=== PATIENT | female | born 1970 | race Caucasian/White ===

== ENCOUNTER 2021-11-21 11:15 | Inpatient (IN) | payer OTHER ==
[~2021-11-21] VITALS: Ht 157.5 cm; Wt 102.1 kg
[2021-11-29 11:54] LABS: BASOPHILS # (AUTO) 0.1 X10'3 (0-0.2); BASOPHILS % (AUTO) 0.7 % (0-1); EOSINOPHILS # (AUTO) 0.1 X10'3 (0-0.9); EOSINOPHILS % (AUTO) 1.2 % (0-6); LYMPHOCYTES # (AUTO) 2.2 X10'3 (1.1-4.8); LYMPHOCYTES % (AUTO) 30.9 % (21-51); MEAN CORPUSCULAR HEMOGLOBIN 30.9 PG (27.0-31.0); MEAN CORPUSCULAR HGB CONC 34.3 g/dL (33.0-36.5); MEAN PLATELET VOLUME 7.8 FL (7.4-10.4); MONOCYTES # (AUTO) 0.6 X10'3 (0-0.9); MONOCYTES % (AUTO) 8.3 % (2-12); NEUTROPHILS # (AUTO) 4.2 X10'3 (1.8-7.7); NEUTROPHILS % (AUTO) 58.9 % (42-75); PRE OP HEMOGLOBIN 14.1 g/dL (12.0-16.0); PRE OP PLATELET COUNT 294 X10'3 (140-440); RED BLOOD COUNT 4.56 X10'6 (4.20-5.60)
[2021-11-29 12:05] LABS: ALBUMIN/GLOBULIN RATIO 1.3 (1.1-1.5); ALKALINE PHOSPHATASE 89 IU/L (46-116); BLOOD UREA NITROGEN 13 MG/DL (7-18); BUN/CREATININE RATIO 22.8 (6.6-38.0); CALCIUM 9.4 MG/DL (8.5-10.1); CHLORIDE 105 MMOL/L (99-107); CREATININE 0.57 MG/DL (0.40-0.90); PRE OP ALT 31 U/L (30-65); PRE OP ANION GAP 9 (8-16); PRE OP AST 19 U/L (10-37); PRE OP BILIRUB, TOTAL 0.2 MG/DL (0.0-1.0); PRE OP GLUCOSE 98 MG/DL (70-104); PRE OP POTASSIUM 4.2 MMOL/L (3.4-5.1); PRE OP SODIUM 141 MMOL/L (135-145); TOTAL CARBON DIOXIDE 26.7 MMOL/L (24-32); TOTAL PROTEIN 7.2 G/DL (6.4-8.2); eGFR > 90 ML/MIN
[2021-11-29] MEDS ORDERED: PROM25TA14 PO (17:29)
[2021-11-29] MEDS ORDERED: CYCL-394 PO (17:29)
[2021-11-29] MEDS ORDERED: ACET-812 PO (17:29)
[2021-11-29] MEDS ORDERED: HYDR-3972 PO (17:29)
[2021-11-29] MEDS ORDERED: IBUP-1984 PO (17:29)
[2021-12-06] VITALS (19 sets, daily range): BP systolic 95–174; BP diastolic 48–96
[2021-12-06] MEDS ORDERED: ringers solution, lacted 1,000 ML IV SCH ×2 (05:00→08:05)
[2021-12-06] MEDS ORDERED: famotidine 20mg tablet PO ONE (05:30)
[2021-12-06] MEDS ORDERED: albuterol 2.5 MG/3 ML nebule NEB ONE (05:30)
[2021-12-06] MEDS ORDERED: vancomycin/NS 1 GM in NS 250 ML IV ONE (05:30)
[2021-12-06] MEDS ORDERED: cefazolin/dext.iso 2gm/50ml IV ONE ×2 (05:30→06:15)
[2021-12-06] MEDS ORDERED: tranexamic acid 650mg tablet PO ONE (05:30)
[2021-12-06] MEDS ORDERED: albuterol 2.5 MG/3 ML nebule NEB STA (05:59)
--- NOTE | 2021-12-06 06:13 | NUR ---
ANCEF ORDERED, THIS PATIENT IS ALLERGIC TO PCN'S. CALLED [facility]. THEY WOULD LIKE TO GIVE KEFLEX. DISCUSSED ADMIN OF KEFLEX WITH PATIENT. PATIENT STATES, " OH YA I CAN TAKE KEFLEX WITH NO PROBLEMS".
[2021-12-06] MEDS ORDERED: LIDOcaine 1% (10mg/ml) 2ml vial ONE (06:26)
[2021-12-06] MEDS ORDERED: ROPIVAcaine 0.5% (5mg/ml) 30ml vial ONE ×2 (06:59→07:58)
[2021-12-06] MEDS ORDERED: ketorolac trometh. 30mg/ml inj. ONE (06:59)
[2021-12-06] MEDS ORDERED: FENTANYL CITRATE/PF 50 MCG/1 ML VIAL ONE ×2 (07:15→07:47)
[2021-12-06] MEDS ORDERED: MIDAZolam 1 MG/ML 5ML VIAL ONE (07:16)
[2021-12-06] MEDS ORDERED: sevoflurane 250ml liquid IH ONE (07:24)
[2021-12-06] MEDS ORDERED: LIDOcaine 1%/PF 5ML 10 MG/ML VIAL ONE ×2 (07:58→09:10)
[2021-12-06] MEDS ORDERED: HYDROmorphone/PF 0.2 MG/ML SYRINGE IV PRN ×2 (08:05)
[2021-12-06] MEDS ORDERED: ROPIVAcaine 0.2% (10 MG/5 ML) BOLUS INJECTION INTERSCALE PRN (08:05)
[2021-12-06] MEDS ORDERED: meperidine/PF 25mg/ml syringe IV PRN ×3 (08:05)
[2021-12-06] MEDS ORDERED: ondansetron/PF 4mg/2ml inj IV PRN ×2 (08:05→10:05)
[2021-12-06] MEDS ORDERED: ROPIVAcaine 0.2%/PF PUMP/bolus 545 ML INTERSCALE SCH (08:05)
[2021-12-06] MEDS ORDERED: dexamethasone sod phosphate 4mg/ml inj. ONE (09:10)
[2021-12-06] MEDS ORDERED: ondansetron/PF 4mg/2ml inj ONE (09:10)
[2021-12-06] MEDS ORDERED: propofol inj 20 ML IV ONE (09:10)
[2021-12-06] MEDS ORDERED: acetaminophen 1,000mg/100ml IV 100 ML IV ONE (09:10)
[2021-12-06] MEDS ORDERED: meperidine/PF 25mg/ml syringe ONE (09:11)
--- NOTE | 2021-12-06 09:21 | NUR ---
Received from OR via , accompanied by Anesthesiologist DR VALLADARES and report given by Anesthesiolgist. AWAKENS TO VOICE. VITALS STABLE. DRESSING DI. RONAN PAIN. RUE IN A SIMPLE SLING. FINGERS WARM AND PINK.
[2021-12-06] MEDS ORDERED: magnesium hydroxide 30ml (MOM) UD suspension PO PRN (10:05)
[2021-12-06] MEDS ORDERED: HYDROmorphone inj. 0.5 MG/0.5 ML DISP.SYRIN IV PRN (10:05)
[2021-12-06] MEDS ORDERED: diphenhydrAMINE 25mg capsule PO PRN ×2 (10:05)
[2021-12-06] MEDS ORDERED: bisacodyl 10mg suppository rectal RC PRN (10:05)
[2021-12-06] MEDS ORDERED: oxyCODONE IR 5mg (immed. release) tablet PO PRN (10:05)
[2021-12-06] MEDS ORDERED: non-formulary drug (Acetaminophen (Tylenol Extra Strength) 2 TABLET) PO PRN (10:05)
[2021-12-06] MEDS ORDERED: naloxone 0.4 mg/ml inj IV PRN (10:05)
[2021-12-06] MEDS ORDERED: proMETHazine 25mg tablet PO PRN (10:05)
[2021-12-06] MEDS ORDERED: HYDROmorphone 1 mg/ml syringe IV PRN (10:05)
[2021-12-06] MEDS ORDERED: acetaminophen 325mg tablet PO PRN (10:05)
[2021-12-06] MEDS ORDERED: ibuprofen tablet 400 MG TABLET PO PRN (10:05)
--- NOTE | 2021-12-06 10:21 | NUR ---
Report called to receiving nurse. Transferred via BED Belongings . Special Issues communicated to receiving nurse.AWAKE AND ORIENTED. VITALS STABLE. DRESSING DI. STATES PAIN IMPROVING. TO ORTHO RM 4024B AT THIS TIME.
--- NOTE | 2021-12-06 10:30 | NUR ---
Received patient from recovery, set up VS, assessed patient. Noted pupils to be unequal in size, did a neuro assessment everything was negative. Stopped the ropivacaine pumped, spoke with pharmacy and anesthesia, anesthesia stated to run it slow no need to pull the catheter out.
[2021-12-06] MEDS: ceFAZolin/D5W- 1GM premix 50 ML IV SCH (14:39)
[2021-12-06] MEDS: cyclobenzaprine 10mg tablet PO SCH (14:39)
[2021-12-06] MEDS: acetaminophen 325mg tablet PO SCH ×2 (14:40→20:56)
[2021-12-06] MEDS: potassium cl 20mEq in 1/2 NS 1,000 ML IV SCH ×2 (14:40→18:05)
--- NOTE | 2021-12-06 17:05 | NUR ---
Dr. Daniels and Dr. Carranza in to see patient.
[2021-12-06] MEDS ORDERED: vancomycin/NS 1 GM ADD-VANTAGE 250 ML IV SCH (20:00)
[2021-12-06] MEDS ORDERED: sennosides 8.6mg tablet PO SCH (21:00)
[2021-12-06] MEDS: oxyCODONE IR 5mg (immed. release) tablet PO PRN (23:02)
[2021-12-07] MEDS: ceFAZolin/D5W- 1GM premix 50 ML IV SCH ×2 (00:11→00:15)
[2021-12-07] MEDS: cyclobenzaprine 10mg tablet PO SCH ×3 (00:11→10:05)
[2021-12-07 02:00] VITALS: BP 133/67
[2021-12-07] MEDS: potassium cl 20mEq in 1/2 NS 1,000 ML IV SCH ×2 (02:05→10:05)
[2021-12-07] MEDS: acetaminophen 325mg tablet PO SCH ×3 (02:14→13:34)
[2021-12-07] MEDS: oxyCODONE IR 5mg (immed. release) tablet PO PRN ×3 (03:51→13:44)
--- NOTE | 2021-12-07 05:15 | NUR ---
PATIENTS IV DISCONTINUED PER PATIENTS REQUEST. EDUCATED ABOUT RISKS OF REFUSING IV AND NOT BEING ABLE TO RECEIVE IV PAIN MEDS
[2021-12-07 06:00] VITALS: BP 149/71
--- NOTE | 2021-12-07 06:27 | NUR ---
Patient in room ORTHO 4024. I have received report from [facility] and had the opportunity to ask questions and assume patient care.
[2021-12-07 07:28] LABS: BASOPHILS % (AUTO) 0.4 % (0-1); EOSINOPHILS % (AUTO) 0.5 % (0-6); HEMOGLOBIN 12.5 g/dl (12.0-16.0); LYMPHOCYTES # (AUTO) 2.3 X10'3 (1.1-4.8); LYMPHOCYTES % (AUTO) 27.3 % (21-51); MEAN CORPUSCULAR HEMOGLOBIN 30.9 PG (27.0-31.0); MEAN CORPUSCULAR HGB CONC 33.7 g/dL (33.0-36.5); MEAN CORPUSCULAR VOLUME 91.6 FL (78-98); MEAN PLATELET VOLUME 7.7 FL (7.4-10.4); MONOCYTES # (AUTO) 0.9 X10'3 (0-0.9); MONOCYTES % (AUTO) 10.9 % (2-12); NEUTROPHILS # (AUTO) 5.2 X10'3 (1.8-7.7); NEUTROPHILS % (AUTO) 60.9 % (42-75); PLATELET COUNT 267 X10'3 (140-440); RED BLOOD COUNT 4.03 X10'6 (4.20-5.60); RED CELL DISTRIBUTION WIDTH 14.9 % (11.5-14.5); WHITE BLOOD COUNT 8.5 X10'3 (4.5-11.0)
[2021-12-07 07:31] LABS: ANION GAP 10 (8-16); CHLORIDE 107 MMOL/L (99-107); POTASSIUM 3.8 MMOL/L (3.5-5.1); SODIUM 142 MMOL/L (135-145); TOTAL CARBON DIOXIDE 25.2 MMOL/L (24-32)
[2021-12-07 10:00] VITALS: BP 155/67
--- NOTE | 2021-12-07 13:53 | NUR ---
Pt s/p reverse right TSA seen at bedside provided with written and verbal protein education with RD contact information. Pt states appetite is okay and denies any food preferences or difficulty feeding self post surgery. Pt denies food allergies or difficulty chewing/swallowing. Will continue to follow. Addendum: 12/07/[address] Amended: Links added.
[2021-12-08] MEDS ORDERED: acetaminophen 325mg tablet PO PRN (10:05)
== END 2021-12-07 14:30 | disposition home or self-care (01) | DRG 483 ==
LOC: PAS IN 12-06 05:23 → ORTHO 4S 12-06 10:30
PROVIDERS: ADMIT Orthopaedic Surgery; ATTEND Orthopaedic Surgery
PROC: 0LS30ZZ Reposition Right Upper Arm Tendon, Open Approach (ICD-10-PCS; 2021-12-06)
PROC: 3E0T3BZ Introduction of Anesthetic Agent into Peripheral Nerves and Plexi, Percutaneous Approach (ICD-10-PCS; 2021-12-06)
PROC: 3E0T33Z Introduction of Anti-inflammatory into Peripheral Nerves and Plexi, Percutaneous Approach (ICD-10-PCS; 2021-12-06)
PROC: 0RRJ00Z Replacement of Right Shoulder Joint with Reverse Ball and Socket Synthetic Substitute, Open Approach (ICD-10-PCS; principal; 2021-12-06 07:24)
DX: M19.011 Primary osteoarthritis, right shoulder (principal); M75.121 Complete rotator cuff tear or rupture of right shoulder, not specified as traumatic; G89.29 Other chronic pain; M65.811 Other synovitis and tenosynovitis, right shoulder; Z88.5 Allergy status to narcotic agent; Z88.8 Allergy status to other drugs, medicaments and biological substances; Z88.0 Allergy status to penicillin; Z79.899 Other long term (current) drug therapy
CPT/HCPCS: Z7506; Z7508; 36415; 80051; 80053; 82948; 85025; 87081; 94640; 94760; 97110; 97161; 97530; A4565; A4618; A7000; C1776; G0378; J0131; J0690; J1100; J1885; J2175; J2250; J2405; J2704; J2795; J3010; J3370; J3480; J3490; J7120; Q0163; Q0169; U0003; U0005